=== PATIENT | male | born 1980 | race Caucasian/White ===

== ENCOUNTER 2023-12-26 10:05 | Emergency (ER) | payer MEDICAID ==
[~2023-12-26] VITALS: Ht 180.3 cm; Wt 77.1 kg
[2023-12-26 10:11] VITALS: BP 134/71; TEMP 98.3
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
[2023-12-26] MEDS ORDERED: IBUP-1953 PO (10:50)
[2023-12-26] MEDS ORDERED: CEPH500T PO (10:50)
[2023-12-26] MEDS ORDERED: SULF1TAB48 PO (10:50)
[2023-12-26 11:02] VITALS: O2SAT 98
--- NOTE | 2023-12-26 11:03 | NUR ---
Patient discharged to home in stable condition. Written and verbal after care instructions given. Patient verbalizes understanding of instruction.
== END 2023-12-26 11:03 | disposition home or self-care (01) ==
LOC: ER 10:05
DX: J34.0 Abscess, furuncle and carbuncle of nose (principal); Z60.2 Problems related to living alone

== ENCOUNTER 2024-08-26 15:52 | Emergency (ER) | payer SELFPAY ==
[~2024-08-26] VITALS: Ht 180.3 cm; Wt 775.6 kg
[~2024-08-26 15:52] MED LIST: CEPH500T PO; IBUP-1953 PO; SULF1TAB48 PO
[2024-08-26 17:06] LABS: BASOPHILS % (AUTO) 0.3 % (0.0-2.0); EOSINOPHILS # (AUTO) 0.1 K/uL (0.0-0.7); EOSINOPHILS % (AUTO) 1.5 % (0.0-6.0); HEMATOCRIT 45 % (39-51); HEMOGLOBIN 15.2 g/dL (13.5-17.5); LYMPHOCYTES # (AUTO) 2.4 K/uL (0.8-4.8); LYMPHOCYTES % (AUTO) 28.4 % (20.0-44.0); MEAN CORPUSCULAR HEMOGLOBIN 28 PG (26.0-33.0); MEAN CORPUSCULAR HGB CONC 34 g/dl (31.0-36.0); MEAN CORPUSCULAR VOLUME 82 fL (80-96); MONOCYTES # (AUTO) 0.8 K/uL (0.1-1.30); MONOCYTES % (AUTO) 9.3 % (2.0-12.0); NEUTROPHILS % (AUTO) 60.5 % (43.0-81.0); PLATELET COUNT (AUTO) 173 K/uL (150-450); RED BLOOD CELL COUNT(AUTO) 5.45 MIL/uL (4.5-6.0); RED CELL DISTRIBUTION WIDTH 14.2 % (11.5-15.0); WHITE BLOOD COUNT (AUTO) 8.3 K/uL (4.3-11.0)
[2024-08-26 17:16] LABS: CARBON DIOXIDE 26 mmol/L (21-32); CHLORIDE 105 mmol/L (98-107); GLUCOSE 111 mg/dL (74-106); POTASSIUM 4.1 mmol/L (3.5-5.1); SODIUM SERUM 141 mmol/L (136-145); UREA NITROGEN, BLOOD 23 mg/dL (7-18)
[2024-08-26 17:48] VITALS: BP 132/78; TEMP 98.1; O2SAT 98
== END 2024-08-26 17:48 | disposition home or self-care (01) ==
LOC: ER 16:05
DX: R07.9 Chest pain, unspecified (principal); F17.200 Nicotine dependence, unspecified, uncomplicated; Z60.2 Problems related to living alone
CPT/HCPCS: 36415; 71045-TC; 80048-TC; 84484-TC; 85025-TC